=== PATIENT | female | born 1960 | race Caucasian/White ===

== ENCOUNTER 2020-07-27 07:45 | Outpatient (CLI) | payer BC, SELFPAY ==
--- NOTE | ~2020-07-27 | MM_ITS ---
EXAMINATION: MM screening [facility] BI w dani HISTORY: Screening mammogram TECHNIQUE: Craniocaudal and mediolateral oblique 3-D tomosynthesis images were obtained and synthetic 2-D images were generated. CAD analysis was submitted and interpreted. COMPARISON: 07/13/2019, 07/10/2018, 07/07/2017 BREAST PARENCHYMAL COMPOSITION: There are scattered areas of fibroglandular density. FINDINGS: There is no evidence of suspicious mass, calcification, or architectural distortion to sugg est malignancy in either breast. There has been no suspicious interval change. IMPRESSION: 1. No mammographic evidence of malignancy. 2. Recommend routine screening mammography in one year. BI-RADS Category 1: Negative Reviewed, dictated and finalized at location A.
== END 2020-07-27 07:46 | disposition home or self-care (01) ==
LOC: ANHIMG 07:49
PROVIDERS: Visit Provider Obstetrics & Gynecology
DX: Z12.31 Encounter for screening mammogram for malignant neoplasm of breast (principal)
CPT/HCPCS: 77063; 77067

== ENCOUNTER 2021-07-30 07:11 | Outpatient (CLI) | payer BC, SELFPAY ==
--- NOTE | ~2021-07-30 | MM_ITS ---
EXAMINATION: MM screening [facility] BI w dani HISTORY: Screening mammogram TECHNIQUE: Craniocaudal and mediolateral oblique 3-D tomosynthesis images were obtained and synthetic 2-D images were generated. CAD analysis was submitted and interpreted. COMPARISON: 07/27/2020, 07/13/2019, 07/10/2018 BREAST PARENCHYMAL COMPOSITION: There are scattered areas of fibroglandular density. FINDINGS: RIGHT BREAST: There is no evidence of suspicious mass, calcification, or architectural distortion to suggest malignancy. There has been no significant interval change. LEFT BREAST: There is a possible mass in the middle third of the slightly inner breast best appreciat ed 6.5 cm from the nipple. In addition, asymmetry posterior third breast in line with the nipple axis on the craniocaudal. IMPRESSION: 1. Left breast findings as above. 2. Additional mammographic views and possible breast ultrasound are recommended. BI-RADS Category 0: Incomplete: Needs additional imaging evaluation. Reviewed, dictated and finalized at location A. IMPRESSION: 1. Left breast findings as above. 2. Additional mammographic views and possible breast ultrasound are recommended . BI-RADS Category 0: Incomplete: Needs additional imaging evaluation.
== END 2021-07-30 07:12 | disposition home or self-care (01) ==
LOC: ANHIMG 07:14
PROVIDERS: Visit Provider Obstetrics & Gynecology
DX: Z12.31 Encounter for screening mammogram for malignant neoplasm of breast (principal); R92.8 Other abnormal and inconclusive findings on diagnostic imaging of breast
CPT/HCPCS: 77063; 77067

== ENCOUNTER 2021-08-17 13:23 | Outpatient (CLI) | payer BC, SELFPAY ==
--- NOTE | ~2021-08-17 | MMUS_ITS ---
EXAMINATION: MM diagnostic [facility] LT w dani, US breast LT complete HISTORY: Possible left breast mass reported on 07/2021 screening mammogram TECHNIQUE: Additional 3-D full-field ML and spot craniocaudal tomosynthesis images of the left breast were performed and synthetic 2-D images were generated. CAD analysis was submitted and interpreted. High resolution complete left breast ultrasound revealed 4 quadrants and subareolar area was performe d. COMPARISON: 07/30/2021, 07/27/2020, 07/13/2019, 07/10/2018 bilateral digital screening mammogram examinat ions FINDINGS: MAMMOGRAPHIC FINDINGS: No suspicious mass, architectural distortion, malignant calcification, skin thickening or retraction of the left breast is detected. ULTRASOUND: No suspicious solid mass or shadowing is detected. IMPRESSION: 1. No mammographic evidence of malignancy 2. Routine annual mammographic screening is recommended BI-RADS Category 1: Negative Reviewed, dictated and finalized at location A. IMPRESSION: 1. No mammographic evidence of malignancy 2. Routine annual mammographic screening is recommended BI-RADS Category 1: Negative
== END 2021-08-17 13:24 | disposition home or self-care (01) ==
LOC: ANHIMG 13:25
PROVIDERS: Visit Provider Obstetrics & Gynecology
DX: R92.8 Other abnormal and inconclusive findings on diagnostic imaging of breast (principal)
CPT/HCPCS: 76641; 77061; 77065; G0279

== ENCOUNTER 2021-10-01 02:09 | Day surgery (SDC) | payer BC, SELFPAY ==
[2021-09-13 09:14] VITALS: BMI 31.3
[2021-10-01 06:18] VITALS: BP 131/74; PULSE 62; RESP 16; TEMP 37.1; O2SAT 98; BMI 30.2
[2021-10-01] MEDS: LACTATED RINGERS 1,000 ML 150 ML IV CONT (06:30)
--- NOTE | 2021-10-01 07:12 | WPDANESEPPF ---
Anes - Initial Pre Proc Eval Procedure: Operation Date: 10/01/21 07:30 Proposed Procedures p Screening Colonoscopy - Peter Greene MD Date/Time: 10/01/21 07:12 Surgeon: Peter Greene MD Pre Op Diagnosis: family hx of colon ca, neoplasm screening Patient Data Age: 61 Gender: F Height: 1.6 m Weight: 77.5 kg Last Vital Signs Temp 98.7 F 10/01/21 06:18 Pulse 62 10/01/21 06:18 Resp 16 10/01/21 06:18 BP 131/74 10/01/21 06:18 Pulse Ox 98 10/01/21 06:18 Allergies Allergy/AdvReac Type Severity Reaction Status Date / Time No Known Allergies Allergy Unverified 10/01/21 06:17 Home Medications Medication Instructions Recorded Confirmed Type metoprolol succinate 25 mg 37.5 mg PO BID 06/29/21 10/01/21 History tablet,extended release 24 hr apixaban [Eliquis] 5 mg PO BID 09/13/21 10/01/21 History digoxin 0.125 mcg PO DAILY 09/13/21 10/01/21 History abgwsdab-oso-meco-FA-lutein 1 tablet PO DAILY 09/13/21 10/01/21 History [Centrum Silver Women] psyllium husk [Metamucil] 2.08 g PO DAILY 09/13/21 10/01/21 History solifenacin 10 mg PO DAILY 09/13/21 10/01/21 History Patient hx anesthesia problems: none Family hx anesthesia problems: none Results Review: All pre-operative results and documents have been reviewed as part of the pre-operative evaluation. [facility] Past Medical History Medical History (Updated 10/01/21 @ 07:08 by Shyam Kay MD) Atrial fibrillation SHARI (obstructive sleep apnea) Family History Family History Mother Diabetes mellitus Social History Social History Smoking status: Never smoker Alcohol intake: current Substance use: never Substance use type: does not use Living arrangements: with family Spiritual care concerns: No Anes - Eval Final PreProcedure Day of Procedure 10/01/21 07:12 Patient weight: obese Heart: regular rate and rhythm Lungs: clear to auscultation Airway: Mallampati scale class II Neurological: alert and oriented Last oral intake: >/= 8 hours ASA classification: III Emergent: no Anesthetic plan: proceed Anesthesia type and monitoring: general GIVS and standard monitoring Results Review: All pre-operative results and documents have been reviewed as part of the pre-operative evaluation. Informed Consent: The patient's anesthetic plan and its attendant risks and benefits were discussed with the patient/family/POA. Questions were solicited and answers provided to the satisfaction of the patient/family/POA.
--- NOTE | 2021-10-01 07:44 | WPDGICN ---
Assessment and Plan Assessment and plan (1) History of rectal ulcer: Code(s): Z87.19 - Personal history of other diseases of the digestive system Status: Acute Assessment and Plan: Patient has a history of rectal ulcer. Clinically resolved plan is for colonoscopy to reassess at this time. May represent localized inflammation and inflammatory bowel disease. (2) History of colon polyps: Code(s): Z86.010 - Personal history of colonic polyps Status: Acute Assessment and Plan: Patient has had multiple colon polyps various exams in the past. Plan is for surveillance colonoscopy is at 3 year intervals. (3) Family history of malignant neoplasm of colon in first degree relative diagnosed when younger than 60 years of age: Code(s): Z80.0 - Family history of malignant neoplasm of digestive organs Status: Acute Assessment and Plan: Patient's father had colon cancer. For this reason continued monitoring with interval colonoscopy is is advised. (4) History of intussusception: Code(s): Z87.19 - Personal history of other diseases of the digestive system Status: Acute Assessment and Plan: Surgically corrected. Small-bowel polyp apparently was identified found to be benign. Continue to monitor clinically. No additional workup this time. GI Consult Note Consult date/time: 10/01/21 07:44 HPI: Rebecca Richardson is a 61 year old female Presents for follow-up colonoscopy. Patient's history is significant that she had a rectal ulceration 2018 felt to be benign. Patient additionally has had colon polyps in the past. Family history is significant for colon cancer in her father. Last year had surgery for an intussusception in [facility] in [place]. Patient's presents today for follow-up colonoscopy. She reports her current weight appetite bowel movements are normal. Review of Systems Review of Systems: All systems reviewed & are unremarkable except as noted in HPI and below PMFSH Past Medical History Medical History (Updated 10/01/21 @ 07:08 by Shyam Kay MD) Atrial fibrillation SHARI (obstructive sleep apnea) Family History Family History Mother Diabetes mellitus Social History Social History Smoking status: Never smoker Alcohol intake: current Substance use: never Substance use type: does not use Living arrangements: with family Spiritual care concerns: No Meds Home Medications and Allergies Home Medications Medication Instructions Recorded Confirmed Type metoprolol succinate 25 mg 37.5 mg PO BID 06/29/21 10/01/21 History tablet,extended release 24 hr apixaban [Eliquis] 5 mg PO BID 09/13/21 10/01/21 History digoxin 0.125 mcg PO DAILY 09/13/21 10/01/21 History xawmgmap-bvr-scpt-FA-lutein 1 tablet PO DAILY 09/13/21 10/01/21 History [Centrum Silver Women] psyllium husk [Metamucil] 2.08 g PO DAILY 09/13/21 10/01/21 History solifenacin 10 mg PO DAILY 09/13/21 10/01/21 History Allergies Allergy/AdvReac Type Severity Reaction Status Date / Time No Known Allergies Allergy Unverified 10/01/21 06:17 Vital Signs Vital Signs - 24 hr 10/01/21 06:18 Temperature 98.7 F Pulse Rate 62 Respiratory Rate 16 Blood Pressure 131/74 Pulse Oximetry 98 Exam Narrative: Physical exam reveals patient be alert. Vital signs stable. HEENT exam is unremarkable. Patient is anicteric. Lungs are clear to auscultation and percussion. Heart is without murmur or extra sounds. Abdominal exam bowel sounds are present soft nontender with no hepatosplenomegaly. Digital external rectal exam is normal.
[2021-10-01 07:46] VITALS: BP 118/66; PULSE 68; RESP 20; O2SAT 97
[2021-10-01 07:56] VITALS: BP 112/67; PULSE 63; RESP 27; O2SAT 96
[2021-10-01 08:06] VITALS: BP 128/74; PULSE 60; RESP 20; O2SAT 100
== END 2021-10-01 08:25 | disposition home or self-care (01) ==
PROVIDERS: Visit Provider Internal Medicine Gastroenterology
PROC: 0DJD8ZZ Inspection of Lower Intestinal Tract, Via Natural or Artificial Opening Endoscopic (ICD-10-PCS; CPT 45378; principal; 2021-10-01 07:30)
DX: Z12.11 Encounter for screening for malignant neoplasm of colon (principal); K62.6 Ulcer of anus and rectum; K57.30 Diverticulosis of large intestine without perforation or abscess without bleeding; K62.1 Rectal polyp; Z80.0 Family history of malignant neoplasm of digestive organs; I48.91 Unspecified atrial fibrillation; G47.33 Obstructive sleep apnea (adult) (pediatric); Z79.01 Long term (current) use of anticoagulants; E66.9 Obesity, unspecified; Z68.30 Body mass index [BMI] 30.0-30.9, adult
CPT/HCPCS: 45380; 45385; 88305; J2704; J7120

== ENCOUNTER 2022-09-30 14:04 | Outpatient (CLI) | payer BC, SELFPAY ==
--- NOTE | ~2022-09-30 | DEXA_ITS ---
Bone Density Report Name: ALE ABDUL Age: 62 Sex: Female Ethnicity: White Date of : 1960 Indication: postmenopausal; screening for osteoporosis; height loss; inflammatory bowel disease; hysterectomy; Referring Provider: JANIE ELIZONDO Study: Bone densitometry was performed. Exam Date: September 30, 2022 Accession number: [id number] Bone Density: Region BMD T-score Z-score Classification AP Spine(L1-L4) 1.010 -0.3 1.3 Normal Femoral Neck (Left) 0.848 0.0 1.4 Normal Total Hip (Left) 0.979 0.3 1.4 Normal Femoral Neck (Right) 0.801 -0.4 1.0 Normal Total Hip (Right) 0.994 0.4 1.5 Normal Total Hip Mean 0.987 0.4 1.5 Normal World Health Organization criteria for BMD impression classify patients as: Normal (T-score at or above -1.0), Osteopenia (T-score between -1.0 and -2.5), or Osteoporosis (T-score at or below -2.5). 10-year Fracture Risk: FRAX not reported because: All T-scores for Spine Total, Hip Total, Femoral Neck at or above -1.0 Clinical Information Provided by Patient: Has used the following medications: Vitamin D, Calcium Has the following medical conditions: Inflammatory bowel diseases, Hysterectomy Patient maximum height was 63 Menopause Age: 25 No regular weight bearing exercise Drinks caffeinated beverages Onset of menses at age 14 Number of children 3 Impression: The patient has normal bone mass. Discussion: BONE DENSITY IS ABOVE THE MINIMUM DESIRABLE LEVEL AT ALL SKELETAL SITES TESTED. This patient?s bone mineral density is above the minimum desirable level (T-score -1.0 or better) at all sites measured. The patient should follow a healthful lifestyle (good nutrition with adequate calcium and vitamin D, and appropriate weight-bearing exercise). Follow-Up: Consider repeating this study in 5 years or sooner if there is some new clinical indication. Reported by: [facility] on 09/30/2022 2:37:00 PM. Reviewed, dictated and finalized at location A.
== END 2022-09-30 14:05 | disposition home or self-care (01) ==
PROVIDERS: Visit Provider Physician Assistant Medical
DX: Z13.820 Encounter for screening for osteoporosis (principal); Z78.0 Asymptomatic menopausal state; E28.39 Other primary ovarian failure; I48.91 Unspecified atrial fibrillation; Z00.00 Encounter for general adult medical examination without abnormal findings
CPT/HCPCS: 77080

== ENCOUNTER 2022-10-05 12:40 | Outpatient (CLI) | payer BC, SELFPAY ==
--- NOTE | ~2022-10-05 | MM_ITS ---
EXAMINATION: MM screening [facility] BI w dani HISTORY: Screening TECHNIQUE: Craniocaudal and mediolateral oblique 3-D tomosynthesis images were obtained and synthetic 2-D images were generated. CAD analysis was submitted and interpreted. COMPARISON: Comparison to multiple prior studies sequentially, with oldest reviewed study dated 07/07. BREAST PARENCHYMAL COMPOSITION: There are scattered areas of fibroglandular density. FINDINGS: There is no evidence of suspicious mass, calcification, or architectural distortion to sugg est malignancy in either breast. There has been no suspicious interval change. IMPRESSION: 1. No mammographic evidence of malignancy. 2. Recommend routine screening mammography in one year. BI-RADS Category 1: Negative Reviewed, dictated and finalized at location B. I [employer]
== END 2022-10-05 12:41 | disposition home or self-care (01) ==
LOC: ANHIMG 12:42
PROVIDERS: Visit Provider Physician Assistant Medical
DX: Z12.31 Encounter for screening mammogram for malignant neoplasm of breast (principal)
CPT/HCPCS: 77063; 77067

== ENCOUNTER 2023-08-18 02:44 | Day surgery (SDC) | payer BC, SELFPAY ==
[2023-08-13 15:08] VITALS: BMI 29.7
[2023-08-18 12:27] VITALS: BP 134/68; PULSE 54; RESP 16; TEMP 36.9; O2SAT 100
[2023-08-18] MEDS: LACTATED RINGERS 1,000 ML 150 ML IV CONT (12:36)
--- NOTE | 2023-08-18 12:57 | WPDANESEPPF ---
Anes - Initial Pre Proc Eval Procedure: Operation Date: 08/18/23 14:00 Proposed Procedures p Esophagogastroduodenoscopy - Peter Greene MD Date/Time: 08/18/23 12:57 Surgeon: Peter Greene MD Pre Op Diagnosis: Esophagitis unspecified without bleeding Patient Data Age: 62 Gender: F Height: 1.59 m Weight: 70.6 kg Last Vital Signs Temp 98.5 F 08/18/23 12:27 Pulse 54 L 08/18/23 12:27 Resp 16 08/18/23 12:27 BP 134/68 08/18/23 12:27 Pulse Ox 100 08/18/23 12:27 O2 Del Method Room Air 08/18/23 12:27 Allergies Allergy/AdvReac Type Severity Reaction Status Date / Time No Known Allergies Allergy Unverified 08/18/23 12:25 Home Medications Medication Instructions Recorded Confirmed Type metoprolol succinate 25 mg 37.5 mg PO BID 06/29/21 08/18/23 History tablet,extended release 24 hr apixaban 5 mg tablet (Eliquis) 5 mg PO BID 09/13/21 08/13/23 History digoxin 125 mcg (0.125 mg) tablet 0.125 mcg PO DAILY 09/13/21 08/18/23 History skuomtcy-smws-rwam 8 mg-folic 400 1 tablet PO DAILY 09/13/21 08/13/23 History mcg-K 50 mcg-lutein 300 mcg tablet (Centrum Silver Women) solifenacin 10 mg tablet 10 mg PO DAILY #90 tabs 04/04/23 08/13/23 Rx atorvastatin 20 mg tablet 20 mg PO QHS #90 tabs 07/08/23 08/13/23 Rx ascorbic acid (vitamin C) 1,000 mg 1 g PO DAILY 08/13/23 08/13/23 History tablet lutein-zeaxanthin 1 cap PO BID 08/13/23 08/13/23 History pantoprazole 40 mg tablet,delayed 40 mg PO DAILY 08/13/23 08/13/23 History release Patient hx anesthesia problems: none Family hx anesthesia problems: none Results Review: All pre-operative results and documents have been reviewed as part of the pre-operative evaluation. [facility] Past Medical History Medical History Atrial fibrillation Family history of malignant neoplasm of colon in first degree relative diagnosed when younger than 60 years of age History of colon polyps History of intussusception History of rectal ulcer Left carpal tunnel syndrome SHARI (obstructive sleep apnea) Right carpal tunnel syndrome Surgical History Surgical History History of cataract extraction History of rotator cuff surgery Family History Family History Mother Diabetes mellitus Social History Social History Smoking status: Never smoker Alcohol intake: current Substance use: never Substance use type: does not use Lack of Transportation: No Lack of Food: Never True Current Housing: I Have Housing Concerned About Future Housing: No Difficulty Paying Gas/Electric Bills: No Difficulty Paying for Meds: No Currently Unemployed: No Education: High School Diploma/GED Difficulty w/ Childcare or Family Care: No Living arrangements: with family Occupation/Education: occupation Gender identity (if verbalized by the patient): Female Spiritual care concerns: No Anes - Eval Final PreProcedure Day of Procedure 08/18/23 12:57 Patient weight: normal Heart: regular rate and rhythm Lungs: clear to auscultation Airway: Mallampati scale class II Neurological: alert and oriented Last oral intake: >/= 8 hours ASA classification: II Emergent: no Anesthetic plan: proceed Anesthesia type and monitoring: general GIVS and standard monitoring Results Review: All pre-operative results and documents have been reviewed as part of the pre-operative evaluation. Informed Consent: The patient's anesthetic plan and its attendant risks and benefits were discussed with the patient/family/POA. Questions were solicited and answers provided to the satisfaction of the patient/family/POA.
--- NOTE | 2023-08-18 13:18 | PM.HPGS ---
History of Present Illness History of Present Illness Consent: Risks, benefits, and alternatives have been discussed and questions answered. Patient agrees to proceed with procedure. Chief complaint: dysphagia, abnormal ct scan Narrative: Rebecca Richardson is a 62 year old female Presents for EGD. Patient apparently had difficulty swallowing about 3 weeks ago went to the emergency room in [place]. Had an imaging study presumed to be a CT scan that showed esophagitis. Placement was placed on pantoprazole. She states subsequent to this symptoms have improved she had no difficulty prior to this. She states when she had difficulty swallowing food she felt as though she may choke. Patient denies any ongoing heartburn. Currently maintained on pantoprazole 40mg p.o. daily. Old x-rays are not available for review. Patient denies any weight loss or bleeding. She has been referred for EGD. Review of Systems Review of Systems: Review of systems noncontributory. [facility] Past Medical History Medical History Atrial fibrillation Family history of malignant neoplasm of colon in first degree relative diagnosed when younger than 60 years of age History of colon polyps History of intussusception History of rectal ulcer Left carpal tunnel syndrome SHARI (obstructive sleep apnea) Right carpal tunnel syndrome Surgical History Surgical History History of cataract extraction History of rotator cuff surgery Family History Family History Mother Diabetes mellitus Social History Social History Smoking status: Never smoker Alcohol intake: current Substance use: never Substance use type: does not use Lack of Transportation: No Lack of Food: Never True Current Housing: I Have Housing Concerned About Future Housing: No Difficulty Paying Gas/Electric Bills: No Difficulty Paying for Meds: No Currently Unemployed: No Education: High School Diploma/GED Difficulty w/ Childcare or Family Care: No Living arrangements: with family Occupation/Education: occupation Gender identity (if verbalized by the patient): Female Spiritual care concerns: No Meds Home Medications and Allergies Home Medications Medication Instructions Recorded Confirmed Type metoprolol succinate 25 mg 37.5 mg PO BID 06/29/21 08/18/23 History tablet,extended release 24 hr apixaban 5 mg tablet (Eliquis) 5 mg PO BID 09/13/21 08/13/23 History digoxin 125 mcg (0.125 mg) tablet 0.125 mcg PO DAILY 09/13/21 08/18/23 History uqhreibn-rbxi-hxki 8 mg-folic 400 1 tablet PO DAILY 09/13/21 08/13/23 History mcg-K 50 mcg-lutein 300 mcg tablet (Centrum Silver Women) solifenacin 10 mg tablet 10 mg PO DAILY #90 tabs 04/04/23 08/13/23 Rx atorvastatin 20 mg tablet 20 mg PO QHS #90 tabs 07/08/23 08/13/23 Rx ascorbic acid (vitamin C) 1,000 mg 1 g PO DAILY 08/13/23 08/13/23 History tablet lutein-zeaxanthin 1 cap PO BID 08/13/23 08/13/23 History pantoprazole 40 mg tablet,delayed 40 mg PO DAILY 08/13/23 08/13/23 History release Allergies Allergy/AdvReac Type Severity Reaction Status Date / Time No Known Allergies Allergy Unverified 08/18/23 12:25 Vital Signs Vital Signs - 24 hr 08/18/23 12:27 Temperature 98.5 F Pulse Rate 54 L Respiratory Rate 16 Blood Pressure 134/68 Pulse Oximetry 100 Oxygen Delivery Room Air Exam Narrative: Physical exam reveals patient to be alert. Vital signs stable. HEENT exam is unremarkable. Patient is anicteric. Lungs are clear to auscultation and percussion. Heart is without murmur or extra sounds. Abdomen bowel sounds are present soft nontender with no organomegaly. Assessment and Plan Assessment and plan (1) Dysphagia: Code(s): R13.10 - Dysphagia, un
[2023-08-18 13:39] VITALS: BP 95/57; PULSE 64; RESP 24; O2SAT 94
[2023-08-18 13:49] VITALS: BP 106/65; PULSE 60; RESP 20; O2SAT 94
[2023-08-18 13:59] VITALS: BP 102/74; PULSE 51; RESP 18; O2SAT 94
== END 2023-08-18 14:15 | disposition home or self-care (01) ==
PROVIDERS: PCP Physician Assistant Medical; Visit Provider Internal Medicine Gastroenterology
PROC: 0DJ08ZZ Inspection of Upper Intestinal Tract, Via Natural or Artificial Opening Endoscopic (ICD-10-PCS; CPT 43235; principal; 2023-08-18 14:00)
DX: Q39.4 Esophageal web (principal); I48.91 Unspecified atrial fibrillation; G47.33 Obstructive sleep apnea (adult) (pediatric); Z79.01 Long term (current) use of anticoagulants
CPT/HCPCS: 43450; 43235; J2704; J7120

== ENCOUNTER 2023-10-24 06:36 | Outpatient (CLI) | payer BC, SELFPAY ==
[2023-10-24 07:26] LABS: Basophils Absolute Auto 0.1 K/mm3 (0.0-0.1); Basophils Percent Auto 1.6 % (0.2-1.2); Eosinophils Absolute Auto 0.1 K/mm3 (0-0.3); Eosinophils Percent Auto 1.9 % (0-4.4); Hematocrit 38.6 % (37.0-47.0); Hemoglobin 12.9 g/dL (12.0-15.0); Immature Granulocyte Absolute 0.01 K/mm3 (0.00-0.031); Immature Granulocyte Percent A 0.2 % (0-0.5); Mean Corpuscular HGB Conc 33.4 g/dl (32-36); Mean Corpuscular Hemoglobin 29.6 pg (26-34); Mean Corpuscular Volume 88.5 fl (80-100); Mean Platelet Volume 9.6 fl (7.4-10.4); Monocytes Absolute Auto 0.6 K/mm3 (0.1-0.6); Monocytes Percent Auto 9.7 % (2.6-8.5); Neutrophils Absolute Auto 3.6 K/mm3 (1.3-6.7); Neutrophils Percent Auto 63.6 % (45.5-73.1); Platelet Count Result 234 k/mm3 (150-375); Red Blood Count 4.36 M/mm3 (4.2-5.4); Red Cell Distribution Width 12.8 % (11.5-14.5); White Blood Count 5.7 K/mm3 (4.5-10.0)
[2023-10-24 07:38] LABS: Alanine Aminotransferase 21 U/L (6-35); Albumin Level 4.1 g/dL (3.5-5.1); Alkaline Phosphatase 88 U/L (38-126); Anion Gap 9 mmol/L (8-16); Aspartate Amino Transferase 27 U/L (14-36); Bilirubin,Total 0.7 mg/dL (0.2-1.3); Blood Urea Nitrogen 14 mg/dL (7-17); Calcium 9.3 mg/dL (8.4-10.2); Carbon Dioxide 24 mmol/L (22-30); Chloride 106 mmol/L (98-107); Cholesterol 156 mg/dL (0-200); Estimated Glomerular Filt Rate > 60; Glucose 96 mg/dL (65-110); HDL Direct 42 mg/dL; Potassium 4.3 mmol/L (3.4-5.0); Sodium 139 mmol/L (137-145); Triglycerides 124 mg/dL (<150)
[2023-10-24 07:49] LABS: LDL Cholesterol Direct 69 mg/dL
[2023-10-24 08:09] LABS: Digoxin 0.5 ng/mL (0.8-2.0)
== END 2023-10-24 06:37 | disposition home or self-care (01) ==
PROVIDERS: PCP Physician Assistant Medical; Referring Provider Physician Assistant Medical
DX: Z00.00 Encounter for general adult medical examination without abnormal findings (principal); G47.33 Obstructive sleep apnea (adult) (pediatric); I48.0 Paroxysmal atrial fibrillation
CPT/HCPCS: 36415; 80053; 80061; 80162; 84443; 85025

== ENCOUNTER 2023-12-15 06:11 | Emergency (ER) | payer BC, SELFPAY ==
[2023-12-15] VITALS (9 sets, daily range): BP systolic 117–133; BP diastolic 64–87; PULSE 57–83; RESP 13–24; TEMP 36.6; O2SAT 93–100
--- NOTE | 2023-12-15 06:22 | ECG_ITS ---
Measurements Intervals [place] Rate: 66 P: -59 CO: 149 QRS: 265 QRSD: 88 T: 7 QT: 399 QTc: 419 Interpretive Statements SINUS rHYTHM LOW QRS VOLTAGE IN PRECORDIAL LEADS [QRS DEFLECTION < 1.0 mV IN CHEST LEADS] POSSIBLE RIGHT VENTRICULAR CONDUCTION DELAY [RSR (QR) IN V1/V2] ANTEROLATERAL MYOCARDIAL INFARCTION , OF INDETERMINATE AGE [40+ ms Q WAVE IN I/aVL/V3- V6] ABNORMAL ECG NO PREVIOUS ECG AVAILABLE FOR COMPARISON Electronically Signed On 12-15-2023 18:23:57 [employer]SEMBLY LINE INSPECTOR by Bob Radford M.D.
[2023-12-15 06:51] LABS: Basophils Absolute Auto 0.1 K/mm3 (0.0-0.1); Basophils Percent Auto 1.4 % (0.2-1.2); Eosinophils Absolute Auto 0.1 K/mm3 (0-0.3); Eosinophils Percent Auto 1.2 % (0-4.4); Hematocrit 39.3 % (37.0-47.0); Hemoglobin 13.5 g/dL (12.0-15.0); Immature Granulocyte Absolute 0.02 K/mm3 (0.00-0.031); Immature Granulocyte Percent A 0.3 % (0-0.5); Lymphocytes Absolute Auto 1.13 K/mm3 (0.9-3.2); Lymphocytes Percent Auto 17.3 % (18.3-44.2); Mean Corpuscular HGB Conc 34.4 g/dl (32-36); Mean Corpuscular Hemoglobin 29.9 pg (26-34); Mean Corpuscular Volume 86.9 fl (80-100); Mean Platelet Volume 9.7 fl (7.4-10.4); Monocytes Absolute Auto 0.5 K/mm3 (0.1-0.6); Monocytes Percent Auto 7.9 % (2.6-8.5); Neutrophils Absolute Auto 4.7 K/mm3 (1.3-6.7); Neutrophils Percent Auto 71.9 % (45.5-73.1); Platelet Count Result 229 k/mm3 (150-375); Red Blood Count 4.52 M/mm3 (4.2-5.4); White Blood Count 6.6 K/mm3 (4.5-10.0)
[2023-12-15] MEDS: ONDANSETRON INJ 4 MG/2 ML VIAL IV PUSH (06:55)
[2023-12-15 06:59] LABS: Alanine Aminotransferase 23 U/L (6-35); Albumin Level 4.5 g/dL (3.5-5.1); Alkaline Phosphatase 88 U/L (38-126); Anion Gap 9 mmol/L (8-16); Aspartate Amino Transferase 29 U/L (14-36); Bilirubin,Total 0.9 mg/dL (0.2-1.3); Blood Urea Nitrogen 16 mg/dL (7-17); Calcium 9.7 mg/dL (8.4-10.2); Carbon Dioxide 20 mmol/L (22-30); Chloride 107 mmol/L (98-107); Estimated CRCL calculation 66 ml/min; Estimated Glomerular Filt Rate > 60; Glucose 113 mg/dL (65-110); Potassium 3.9 mmol/L (3.4-5.0); Sodium 136 mmol/L (137-145)
[2023-12-15] MEDS: SODIUM CHLORIDE 0.9% IV 1,000 ML 999 ML IV CONT (07:52)
[2023-12-15] MEDS: diazePAM INJ (*CRX) 10 MG/2 ML SYRINGE 5 MG IV PUSH (07:53)
--- NOTE | 2023-12-15 09:17 | ED.GENADULT ---
HPI - General Adult General Chief complaint: Dizziness Stated complaint: dizziness, N/V Time Seen by Provider: 12/15/23 07:02 History of Present Illness HPI narrative: Patient is a 63-year-old female who presents ER with spinning dizziness. sudden onset upon waking. No sinus congestion or sore throat or cough. No arm numbness or weakness. She reports symptoms are worse with lying down flat. She gets nausea vomiting with this. Denies history of vertigo. No ringing in the ears. Related Data Home Medications Medication Instructions Recorded Confirmed metoprolol succinate 25 mg 37.5 mg PO BID 06/29/21 08/18/23 tablet,extended release 24 hr apixaban 5 mg tablet (Eliquis) 5 mg PO BID 09/13/21 08/13/23 digoxin 125 mcg (0.125 mg) tablet 0.125 mcg PO DAILY 09/13/21 08/18/23 gtcjvvju-jcvw-urel 8 mg-folic 400 1 tablet PO DAILY 09/13/21 08/13/23 mcg-K 50 mcg-lutein 300 mcg tablet (Centrum [facility]) ascorbic acid (vitamin C) 1,000 mg 1 g PO DAILY 08/13/23 08/13/23 tablet lutein-zeaxanthin 1 cap PO BID 08/13/23 08/13/23 Allergies Allergy/AdvReac Type Severity Reaction Status Date / Time No Known Allergies Allergy Unverified 11/27/23 14:05 Review of Systems Review of Systems: All systems reviewed & are unremarkable except as noted in HPI and below Constitutional: Constitutional: Reports no additional constitutional complaints ENT: Reports vertigo, Reports dizziness, Denies nasal congestion and Denies sore throat Cardiovascular: Cardiovascular: Reports no additional cardiovascular complaints Respiratory: Respiratory: Reports no additional respiratory complaints Gastrointestinal: Gastrointestinal: Denies abdominal pain, Denies diarrhea, Reports nausea and Reports vomiting Musculoskeletal: Musculoskeletal: Reports no additional musculoskeletal complaints [facility] Past Medical History Medical History (Updated 12/15/23 @ 09:21 by Vinicio Zamorano MD) Atrial fibrillation Family history of malignant neoplasm of colon in first degree relative diagnosed when younger than 60 years of age History of colon polyps History of intussusception History of rectal ulcer Left carpal tunnel syndrome Left hip pain Lumbar pain SHARI (obstructive sleep apnea) Right carpal tunnel syndrome Surgical History Surgical History History of cataract extraction History of rotator cuff surgery Family History Family History Mother Diabetes mellitus Social History Social History Smoking status: Never smoker Alcohol intake: current Substance use: never Substance use type: does not use Lack of Transportation: No Lack of Food: Never True Current Housing: I Have Housing Concerned About Future Housing: No Difficulty Paying Gas/Electric Bills: No Difficulty Paying for Meds: No Currently Unemployed: No Education: High School Diploma/GED Difficulty w/ Childcare or Family Care: No Living arrangements: with family Occupation/Education: occupation Gender identity (if verbalized by the patient): Female Spiritual care concerns: No Exam Narrative: GENERAL: Well-appearing, well-nourished, and in no acute distress. HEAD: Normocephalic, atraumatic. EYES: PERRL and nystagmus with lateral gaze to left and right. ENT: Mucous membranes moist. TMs normal bilaterally. NECK: Supple. CHEST: Clear to auscultation. No respiratory distress. HEART: Regular rate and rhythm. Normal peripheral pulses. EXTREMITIES: Normal range of motion. No edema. SKIN: Warm, dry, no rash. NEURO: Alert and oriented x3. PSYCH: Normal mood and affect. Course Course Emergency Course: Symptoms resolved with IV fluid, Valium 5 mg, and meclizine 25 mg. Patient has been up and ambulatory without issue. She reports she does feel little heavy from the medicat
== END 2023-12-15 09:53 | disposition home or self-care (01) ==
PROVIDERS: Emergency Medicine; Emergency Provider Emergency Medicine; PCP Family Medicine
DX: R42 Dizziness and giddiness (principal); I48.91 Unspecified atrial fibrillation; G47.33 Obstructive sleep apnea (adult) (pediatric); Z98.49 Cataract extraction status, unspecified eye; Z86.010 Personal history of colon polyps; Z79.01 Long term (current) use of anticoagulants
CPT/HCPCS: 36415; 80053; 85025; 93005; 96361; 96374; 96375; 99284; J2405; J3360; J7030

== ENCOUNTER 2024-01-23 12:50 | Outpatient (CLI) | payer BC, SELFPAY ==
--- NOTE | ~2024-01-23 | MR_ITS ---
EXAMINATION: MR brain IAC wo/w con DATE: 01/23/2024 13:39 INDICATION: Dizziness and giddiness. TECHNIQUE: Magnetic resonance imaging (MRI) of the brain, brainstem, and internal auditory canals was performed without and with 15 mL MultiHance intravenous contrast. COMPARISON: None. FINDINGS: There are scattered areas of nonspecific increased T2-weighted signal intensity in the cere bral white matter, which is within normal limits for the patient's age. There is no intracranial hemo rrhage, acute infarction, or abnormal intracranial mass lesion. The ventricles are normal in size. Th e paranasal sinuses are clear. There are likely changes of ocular lens replacement surgeries. The int ernal auditory canals, inner ears, and tympanic cavities are normal. The mastoid air cells are normal . IMPRESSION: 1. Normal aging brain. Reviewed, dictated and finalized at location A. IMPRESSION: 1. Normal aging brain.
== END 2024-01-23 12:51 ==
PROVIDERS: PCP Family Medicine; Visit Provider Physician Assistant Medical
DX: R42 Dizziness and giddiness (principal); R51.9 Headache, unspecified
CPT/HCPCS: 70553; A9577

== ENCOUNTER 2024-02-03 14:45 | Outpatient (RCR) | payer BC, SELFPAY ==
--- NOTE | 2023-12-31 16:53 | PTOPEVAL1 ---
Assessment and note entered by Loren Jessica, PT Assessment Status Evaluation Diagnosis pain in left hip, low back pain Addn. conditions weakness, abnormal postures Subjective Information Pt reports no pain in back just in hip and sometimes can feel the bulge . Had a cortisone shot in March of last year Was at work and could only get up from sitting while sitting very far forward and pushing up from hair, and straighten from there. Usually is only in the morning but at this point went to doctor and got a steroid shot on 11/27/23. Does two stretches in the morning every morning and this helps. side sleeper on left side, will feel stuck but stretches help her get unstuck Started about 2-3 years ago, no traumatic event. Usually about every 6 months but sometimes closer together. 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 She also has a history of arthritis and x-ray imaging showing lumbar curvatures and anterolisthesis. Pt demo's severely decreased transverse abdominal strength and decreased hip/core strength as well. She also demo 's what appears to be a pelvic upslip on left side . Pt will benefit from physical therapy to address alignment, strength deficits, and pain in order to return to a PLOF from 2 years ago. Plan of Care Interventions Check Out for Orthotic/Pr,Electrical Stimulation, Manual Therapy,Mechanical Traction,Neuro Re- education,Patient/Caregiver Educati,Therapeutic Activities,Therapeutic Exercise,Self-Care/Home Management PT Services Indicated Yes Treatment Frequency and 1-2x weekly x 12 visits Duration These treatments will address the objective and functional deficits as defined above. The patient will be advanced safely and appropriately in order for the patient to progress towards his/her prior level of function. Additional exercises will be introduced and as well as a comprehensive home
--- NOTE | 2023-12-31 16:53 | OPREHPOC ---
Outpatient Therapy Plan of Care This is a Multidisciplinary Plan of Care that may contain components documented by all disciplines (PT, OT, and ST.) PT Problem 1 PT Problem #1 Knowledge Deficit PT Goal 1 Goal Pt will be independent in HEP Pt will verbalize understanding of diagnosis and prognosis Target Visit 6 PT Problem 2 PT Problem #2 Pain PT Goal 1 Goal Pt will report greatest pain level at 3/10 or less to improve ADLs and activities Target Visit 6 PT Goal 2 Goal Pt will report resolution of pain to return to PLOF Target Visit 12 PT Problem 3 PT Problem #3 Impaired Strength PT Goal 1 Goal Pt will demo strength of 4/5 in all tested planes BLEs Target Visit 12 PT Goal 2 Goal Pt will demo core strength of 3+/5 of the TRAM to improve lumbopelvic stability Target Visit 12
--- NOTE | 2024-01-21 16:53 | OPREHPOC ---
Outpatient Therapy Plan of Care This is a Multidisciplinary Plan of Care that may contain components documented by all disciplines (PT, OT, and ST.) PT Problem 1 PT Problem #1 Knowledge Deficit PT Goal 1 Goal Pt will be independent in HEP Pt will verbalize understanding of diagnosis and prognosis Target Visit 6 PT Problem 2 PT Problem #2 Pain PT Goal 1 Goal Pt will report greatest pain level at 3/10 or less to improve ADLs and activities Target Visit 6 PT Goal 2 Goal Pt will report resolution of pain to return to PLOF Target Visit 12 PT Problem 3 PT Problem #3 Impaired Strength PT Goal 1 Goal Pt will demo strength of 4/5 in all tested planes BLEs Target Visit 12 PT Goal 2 Goal Pt will demo core strength of 3+/5 of the TRAM to improve lumbopelvic stability Target Visit 12 PT Problem 4 PT Problem #4 Impaired Balance PT Goal 1 Goal Pt will demo ability to stand with feet together on firm surface with eyes closed for 10 seconds Target Visit 6 Comment from reevaluation date PT Goal 2 Goal Pt will demo ability to stand with feet together on firm surface with eyes closed for 30 seconds Target Visit 12 Comment from reevaluation date
--- NOTE | 2024-01-21 16:53 | PTOPEVAL1 ---
Assessment and note entered by Loren Jessica, PT Evaluation Information Assessment Status Re-evaluation Diagnosis pain in left hip, low back pain, BPPV Left ear, dizziness and giddiness Therapy Condition weakness abnormal postures oth. abnormalities of mobility and gait Subjective Information Had a twinge this morning, but also has not been able to keep up with stretches secondary to vertigo. Has not had a serious episode since starting therapy. Feels that back has been ok before then it would hit her. Pt reports has improved with getting out of bed in the morning. Currently is having severe vertigo spell. Last spell was December 15, went to the emergency room with it. Prior to that has not had vertigo episodes. was sitting upright and spinning , was vomiting and couldn't stop. Pt reports prior to vertigo spell, has to have a pillow to sleep, cannot sleep flat on her back or would get loopy . Dropped metoprolo dosage, and also has MRI scheduled this week. Reported Pain Level Pain Score 0: Self Report Assessment PT Clinical Summary Pt presents today to add vestibular diagnosis to her active therapy plan for low back pain. She has improved in her low back pain but is most limited at the moment due to vertigo and related n/v symptoms. Vestibular evaluation suggestive of left sided BPPV though does not show nystagmus with [place]-Hallpike maneuver. Pt was treated with Charly Tripp today and educated on 24 hour precautions. Shift in plan of care to focus more heavily on vertigo symptoms with returning to back pain focus as vertigo progresses. Pt will benefit from continued therapy to address new onset vertigo and continue prior POC related to back pain. Plan of Care Interventions Check Out for Orthotic/Pr,Electrical Stimulation, Manual Therapy,Mechanical Traction,Neuro Re- education,Patient/Caregiver Educati,Therapeutic Activities,Therapeutic Exercise,Self-Care/Home Management Other Interventions LAST IRONER PT Services Indicated Yes Treatment Frequency and 1-2x weekly x 12 visits Duration These treatments will address t
--- NOTE | 2024-02-03 15:31 | PTOPDC ---
Assessment and note entered by Loren Jessica, PT Assessment Status Discharge Diagnosis pain in left hip, low back pain, BPPV, dizziness and giddiness Subjective Information Vertigo: 100% normal, hasn't had any trouble. Is back to normal Hip and back: no trouble. But also is concerned that it will return. Can go a long time without pain then it returns. Reports she didn't lift much before more secondary to her right shoulder Reported Pain Level Pain Score 0: Self Report Assessment PT Clinical Summary Pt has attended therapy 10 sessions initially for her lower back and hip pain, during POC had a spell of vertigo which was added to her existing plan of care. Over a total of 10 visits, pt's pain has fully resolved, her vertigo is fully resolved , and she has met all goals with exception of strength in core and hips. Pt has shown an increase in her core and hip strength however not up to the goal of 3+/5 and 4/5. She is independent in her home exercises and has been educated on which to continue, what to do if her pain returns, and when to return to therapy if needed. She is happy with her progress and reports feeling 100% improved overall. Thus she is being discharged from therapy for completion of her plan. PT Services Indicated Not at this time
== END 2024-02-05 13:54 | disposition home or self-care (01) ==
LOC: ANHHIPT 14:45
PROVIDERS: PCP Family Medicine; Visit Provider Physician Assistant Medical
DX: M54.50 Low back pain, unspecified (principal); M25.552 Pain in left hip
CPT/HCPCS: 95992; 97014; 97110; 97112; 97162; 97750; G0283

== ENCOUNTER 2024-02-20 07:31 | Outpatient (CLI) | payer BC, SELFPAY ==
--- NOTE | ~2024-02-20 | MM_ITS ---
EXAMINATION: MM screening renetta BI w dani HISTORY: Screening mammogram TECHNIQUE: Craniocaudal and mediolateral oblique 3-D tomosynthesis images were obtained and synthetic 2-D images were generated. CAD analysis was submitted and interpreted. COMPARISON: 10/05/2022 bilateral screening mammogram 08/17/2021 diagnostic left mammogram and complete left breast ultrasound examination, reported negati ve 07/30/2021, 07/13/2019, 07/07/2017 bilateral screening mammogram examinations BREAST PARENCHYMAL COMPOSITION: There are scattered areas of fibroglandular density. FINDINGS: Stable mild fibroglandular asymmetry. There is no evidence of suspicious mass, calcificatio n, or architectural distortion to suggest malignancy in either breast. There has been no suspicious i nterval change. IMPRESSION: 1. No mammographic evidence of malignancy. 2. Recommend routine screening mammography in one year. BI-RADS Category 1: Negative Reviewed, dictated and finalized at location A.
== END 2024-02-20 07:32 | disposition home or self-care (01) ==
LOC: ANHIMG 07:34
PROVIDERS: PCP Family Medicine; Visit Provider Physician Assistant Medical
DX: Z12.31 Encounter for screening mammogram for malignant neoplasm of breast (principal)
CPT/HCPCS: 77063; 77067

== ENCOUNTER 2024-12-02 00:44 | Day surgery (SDC) | payer MEDICARE, SELFPAY ==
[2024-11-23 14:52] VITALS: BMI 28.8
--- NOTE | 2024-11-23 15:10 | PC.NURSE ---
Spoke with _PATIENT regarding medication ELIQUIS. PATIENT_verbalizes understanding that the last dose is to be taken on _11/28/24 and the Endoscopist will instruct them when to restart after the procedure.
--- OUTSIDE RECORDS SUMMARY | 2024-12-02 00:47 | XMS_ITS | Clinical Summary ---
Author Organization [facility] Address [address] [place] [address] Care Team Providers Care Wool Puller Name Role Phone Indira Sears PA-C Primary Care Provider [phone] Allergies No known active allergies Medications Ascorbic Acid 1000 MG Tab Take 1 tablet by mouth daily with supper. Active Multiple Vitamins-Minera ls (MULTIVITAMIN ADULT OR) Take by mouth daily. Active solifenacin succinate 10 MG Tab Take 1 tablet (10 mg total) by mouth daily. 2 Active atorvastatin (LIPITOR) 20 MG tablet Take 1 tablet (20 mg total) by mouth every evening. 2 Active Multiple Vitamins-Minera ls (LUTEIN-ZEAXANT HIN OR) Take by mouth 2 (two) times a day. Active digoxin (LANOXIN) 0.125 MG tablet TAKE 1 TABLET BY MOUTH DAILY 90 tablet 4 Active ELIQUIS 5 MG tablet TAKE 1 TABLET BY MOUTH TWICE DAILY 180 tablet 4 Active metoprolol tartrate (LOPRESSOR) 25 MG tablet TAKE 1 TABLET BY MOUTH TWICE DAILY 180 tablet 5 Active metoprolol tartrate (LOPRESSOR) 25 MG tablet Take 1 tablet (25 mg total) by mouth 2 (two) times daily. 180 tablet 1 4 11/23/19 25 Discontinued Active Problems Problem Noted Date Diagnosed Date Bradycardia 09/10/2024 Assessment & Plan (09/10/2024 12:29 PM MEDICAL EDUCATION COORDINATOR): Pulse consistently low the past few visits. Discussed options to stop digoxin or metoprolol but patient wishes to continue at this time. She is not experiencing dizziness, lightheadedness or near syncope. Advised patient to contact us if these symptoms begin. Elevated BP without diagnosis of hypertension Assessment & Plan (02/27/2024 2:41 PM CDT): Blood pressure controlled in office today. She is currently only on metoprolol, which is not the best blood pressure medication. Assessment & Plan (11/16/2023 7:51 AM MEDICAL EDUCATION COORDINATOR): Blood pressure elevated in the office. Encouraged home blood pressure monitoring. Continue to monitor blood pressure. She is currently only on metoprolol, which is not the best blood pressure medication. Mixed hyperlipidemia 02/26/2023 Assessment & Plan (09/10/2024 12:27 PM MEDICAL EDUCATION COORDINATOR): Lipid panel completed 2 days ago with primary care and LDL is 75. Continue atorvastatin 20mg daily. Assessment & Plan (02/27/2024 2:41 PM CDT): Continue atorvastatin. Assessment & Plan (11/16/2023 7:50 AM MEDICAL EDUCATION COORDINATOR): Continue atorvastatin. PAF (paroxysmal atrial fibrillation) ([facility] S/HCC) 09/14/2021 Assessment & Plan (09/10/2024 12:26 PM MEDICAL EDUCATION COORDINATOR): She is in normal sinus rhythm on auscultation in office today. She denies any recent episodes of palpitations. Discussed option to stop digoxin, but patient wishes to continue both metoprolol and digoxin for now. She is on anticoagulation with eliquis and denies any bleeding or bruising concerns at this time. Assessment & Plan (02/27/2024 2:41 PM CDT): On physical exam, she is currently in normal sinus rhythm. We briefly discussed stopping either metoprolol or digoxin. For now we will keep metoprolol and digoxin the same. I am not very concerned about her bradycardia. Continue Eliquis. Assessment & Plan (11/16/2023 7:50 AM MEDICAL EDUCATION COORDINATOR): On physical exam, she is currently in normal sinus rhythm. She has concerns about checking for atrial fibrillation at home. I discussed options with her including the cardiac stroke or apple watch. She has a smart phone and I explained to her that she could use the cardio pro with the tila to determine if she is in atrial fibrillation. She would like to check a digoxin level, which we have ordered today. I recommended that she continue digoxin and stay on metoprolol. I explained to her that we started digoxin in the hospital because she had difficulty with blood pressure. She needs to continue anticoagulation with apixaban for stroke prevention. Assessment & Plan (08/23/2022 8:38 AM CDT): Continued on dig and metoprolol for rate control eliquis for AC Assessment & Plan (01/25/2022 8:12 AM CDT): Continued on eliquis for anticoagulation Metoprolol and dig for rate control Assessment & Plan (09/14/2021 3:29 PM MEDICAL EDUCATION COORDINATOR): On physical exam, she is currently in normal sinus rhythm. She has concerns about checking for atrial fibrillation at home. I discussed options with her including the cardiac stroke or apple watch. She has a smart phone and I explained to her that she could use the cardio pro with the tila to determine if she is in atrial fibrillation. She would like to check a digoxin level, which we have ordered today. I recommended that she continue digoxin and stay on metoprolol. I explained to her that we started digoxin in the hospital because she had difficulty with blood pressure. She needs to continue anticoagulation with apixaban for stroke prevention. Preoperative cardiovascular examination 09/14/20 Assessment & Plan (09/14/2021 3:30 PM MEDICAL EDUCATION COORDINATOR): She is at low risk for the proposed noncardiac procedure. She does not require further cardiac testing. I recommended that she stop apixaban 48 hours prior to her colonoscopy. I recommended that she continue metoprolol and digoxin during the perioperative period. Class 1 obesity due to exces s calories without serious comorbidity with body mass index (BMI) of 34.0 to 34.9 in adult 09/14/2021 Assessment & Plan (09/14/2021 3:31 PM MEDICAL EDUCATION COORDINATOR): She is obese with a Body mass index is 34.96 kg/m . She was educated on lifestyle modifications including diet and exercise. Abdominal pain 11/01/2019 Resolved Problems Problem Noted Date Diagnosed Date Resolved Date Atrial fibrillation with RVR ([facility]) 08/23/2021 09/14/2021 Atrial flutter with rapid ve ntricular response ([facility]) 02/03/2021 09/14/2021 Atrial fibrillation with rap id ventricular response ([facility]) 02/02/2021 09/14/2021 Encounters Date Type Department Care Team Description 11/19/2024 Telephone [facility], [address] [address] Kike Russell MD Surgical Clearance 09/14/2024 Abstract [facility], [address] [address] Tresa White CMA 09/10/2024 11:45 AM MEDICAL EDUCATION COORDINATOR [facility] [id number] [place] [phone] Kike Russell MD Lanter, Megan N, PA Atrial Fibrillation; Lipids 09/10/2024 Travel from Last 3 Months Immunizations Name Administration Dates Next Due PFIZER COVID-19 (ORIGINAL FO RMULATION, PURPLE CAP) mRNA, LNP-S, PF, 30 MCG/0.3 ML DOSE 02/13/2021,01/29/2021,01/08/2021 Family History Medical History Relation Comments Cancer Father Diabetes Mother Arthritis Sister Relation Status Comments Father Mother Sister Social History Tobacco Use Types Packs/Day Years Used Date Smoking Tobacco: Never Smokeless Tobacco: Never Tobacco Cessation:Counseling Given: Not Answered Alcohol Use Standard Drinks/Week Comments No 0 (1 standard drink = 0.6 oz pur e alcohol) AUDIT-C Answer Date Recorded Frequency of Alcohol Consumption Never 04/28/2019 Average Number of Drinks Not on file 019 Frequency of Binge Drinking Not on file 12/2018 Comments No Sex and Gender Information Value Date Recorded Sex Assigned at Not on file Legal Sex Female 7:43 PM CDT Gender Identity Not on file Sexual Orientation Not on file Last Filed Vital Signs Vital Sign Reading Time Taken Comments Blood Pressure 110/60 09/10/2024 11:37 AM MEDICAL EDUCATION COORDINATOR Pulse 51 09/10/2024 11:37 AM MEDICAL EDUCATION COORDINATOR Temperature 37.3 C (99.2 F) 07/16/2023 11:06 AM CDT Respiratory Rate 22 07/16/2023 11:06 AM CDT Oxygen Saturation 98% 09/10/2024 11:37 AM MEDICAL EDUCATION COORDINATOR Inhaled Oxygen Concentration - - Weight 73 kg (161 lb) 09/10/2024 11:37 AM MEDICAL EDUCATION COORDINATOR Height 157.5 cm (5' 2 ) 09/10/2024 11:37 AM MEDICAL EDUCATION COORDINATOR Body Mass Index 29.45 09/10/2024 11:37 AM MEDICAL EDUCATION COORDINATOR Plan of Treatment Upcoming Encounters Date Type Department Care Team (Late st Contact Info) Description 03/11/2025 1:00 PM CDT [facility] [address] [place] [id number] Kike Russell MD [address] [address] Health Maintenance Due Date Last Done Comments Colorectal Cancer Screening Colonoscopy (10 Years) 1959 Hepatitis C 1977 DTaP, Tdap and Td Vaccines ( 1 - Tdap) 1978 Mammogram Screening 1999 Zoster Vaccines (1 of 2) 2009 RSV Immunization or 60+ Years (1 - Risk 60-74 years 1-dose series) 2019 COVID-19 Vaccine (4 - 2023-2 5 season) 2024 02/13/2021, 01/29/2021, 01/08/2021 Influenza Adult (#1) 2024 Dexa Scan (General) 2024 Pneumococcal Vaccine: 65+ Years (1 of 1 - PCV) 2024 Meningococcal B Vaccine Aged Out No l onger eligible based on patient's age to complete this topic Meningococcal Vaccine Aged Out No maikel anna eligible based on patient's age to complete this topic Pneumococcal Vaccine: Pediatrics (0 to 5 Years) and At-Risk Patients (6 to 64 Years) Aged Out No longer eligible b ased on patient's age to complete this topic RSV Immunizations Under 20 Months Aged Out No longer eligible b ased on patient's age to complete this topic Goals Goal Patient Goal Type Associated Problems Recent Progress Patient-Stated? Author Health - patient able to perform ADLs independently General No Fina Olguin, RN Medical Devices Implanted Type Area Propulsion Motor And Generator Repairer Device Identifier Shelf Expiration Date Model / Serial / Lot Iol [employer] - [id number] Implanted:Qty: 1 on 05/05/2019 by Sam Lopez MD at [facility] [employer]ens [employer] 03/17/2022 [id number] / / Procedures Procedure Name Priority Date/Time Associated Diagnosis Comments LIPID PANEL Routine 09/09/2024 CMP (OUTSIDE LAB) Routine 09/09/2024 CBC (OUTSIDE LAB) Routine 09/09/2024 TSH (OUTSIDE LAB) Routine 09/09/2024 HEMOGLOBIN, GLYCOSYLATED Routine 09/09/2024 from Last 3 Months Results * TSH (OUTSIDE LAB) (09/09/2024) TSH 2.69 0.40 - 4.50 09/09/2024 us Default History Genericprovider LAB-OUTSIDE/ABST RACTED Final Result * (ABNORMAL) CMP (OUTSIDE LAB) (09/09/2024) SODIUM S/P/B 141 135 - 146 POTASSIUM S/P/B 4.1 3.5 - 5.3 CHLORIDE S/P/B 107 98 - 110 CO2 25 20 - 32 BUN 17 7 - 25 CREATININE S/P/B 0.77 0.50 - 1.05 EGFR NON-AFR. AMER. 86 >60 CALCIUM S/P/B 9.1 8.6 - 10.4 GLUCOSE 83 65 - 99 mg/dL TOTAL PROTEIN S/P/B 0.8 0.2 - 1.2 ALBUMIN S/P/B 4.4 3.6 - 5.1 AST 20 10 - 35 ALT 18 6 - 29 ALKALINE PHOSPHATASE S/P/B 70 37 - 153 BILIRUBIN TOTAL S/P/B 0.8 0.2 - 1.2 09/09/2024 Default History Genericprovider LAB-OUTSIDE/ABST RACTED Final Result * CBC (OUTSIDE LAB) (09/09/2024) WBC 5.4 3.8 - 10.8 HGB 13.3 11.7 - 15.5 HCT 40.0 35.0 - 45.0 PLT 226 140 - 400 RBC 4.31 3.80 - 5.10 09/09/2024 Default History Genericprovider LAB-OUTSIDE/ABST RACTED Final Result * HEMOGLOBIN, GLYCOSYLATED (09/09/2024) HGB A1C 5.3 4.8 - 5.7 % 09/09/2024 Default History Genericprovider LABORATORY Final Result * (ABNORMAL) LIPID PANEL (09/09/2024) CHOLESTEROL 136 0 - 200 HDL 40(A) 50 - 70 TRIGLYCERIDES 128 0 - 150 NON HDL CHOLESTEROL 96 0 - 130 CHOL/HDL RATIO 3.4 0.0 - 5.0 LDL (CALCULATED) 75 0 - 100 09/09/2024 Default History Genericprovider LABORATORY Final Result from Last 3 Months Insurance MEDICARE GENERIC - COMMERCIAL Advance Directives Documents on File Type Date Recorded Patient Seafood Preparer Expl anation Advance Directives and Living Will 08/24/2021 8:42 AM [place] CARE * Full Code (Latest Code Status on File) Date Activated Date Inactivated Comments 08/23/2021 1:48 PM 08/24/2021 6:06 PM * Full Code Date Activated Date Inactivated Comments 02/02/2021 2:00 PM 02/03/2021 3:25 PM * Full Code Date Activated Date Inactivated Comments 11/01/2019 10:45 PM 11/05/2019 2:59 PM Care Teams Wool Puller Relationship Specialty Start Date End Date Indira Sears PA-C [address] [place], [place] [address] [place] [address] PCP - General PHYSICIAN [employer] FURNACE 06/30/22
--- OUTSIDE RECORDS SUMMARY | 2024-12-02 00:47 | XMS_ITS | Encounter Summary ---
Author Organization [facility] Address [facility] [place] [address] Care Team Providers Care Building Supervisor Name Role Phone Indira Sears PA-C Primary Care Provider [phone] Encounter Details Date Type Department Care Team (Late st Contact Info) Description 08/07/2022 Abstract [facility] [address] Roddy Blankenship MA Social History Tobacco Use Types Packs/Day Years Used Date Smoking Tobacco: Never Smokeless Tobacco: Never Alcohol Use Standard Drinks/Week Comments No 0 [...] on file Sexual Orientation Not on file documented as of this encounter Functional Status * RETIRED Are you deaf or do you have serious difficulty hearing Answer Date of Assessment Author Status Yes 08/23/2021 10:00 AM CDT Acti ve * RETIRED Are you blind or do you have serious difficulty seeing, even when wearing glasses? Answer Date of Assessment Author Status No 08/23/2021 10:00 AM CDT Acti ve * Do you have serious difficulty walking or climbing stairs? Answer Date of Assessment Author Status No 08/23/2021 10:00 AM Kimberly Huang RN Active * Do you have difficulty dressing or bathing? Answer Date of Assessment Author Status No 08/23/2021 10:00 AM CALLIET Kimberly Demarco RN Active * Because of a physical, mental, or emotional condition, do you have difficulty doing errands alone such as visiting a doctor's office or shopping? Answer Date of Assessment Author Status No 08/23/2021 10:00 AM Kimberly Huang RN Active documented as of this encounter Mental Status * Because of a physical, mental, or emotional condition, do you have serious difficulty concentrating, remembering, or making decisions? Answer Entry Date Author Status No 08/23/2021 10:00 AM Kimberly Huang RN Active documented in this encounter Plan of Treatment Upcoming Encounters Date Type Department Care Team (Late st Contact Info) Description 03/11/2025 1:00 PM CDT Office Visit [facility] [address] [place] [phone] Kike Russell MD [address] [address] documented as of this encounter Goals Goal Patient Goal Type Associated Problems Recent Progress Patient-Stated? Author Health - patient able to perform ADLs independently General No Fina Olguin RN documented as of this encounter Procedures Procedure Name Priority Date/Time Associated Diagnosis Comments COMPREHENSIVE METABOLIC PANEL Routine 10/24/2023 LIPID PANEL Routine 10/24/2023 CBC, MANUAL DIFF Routine 10/24/2023 THYROID STIM HORMONE TSH Routine 10/24/2023 DIGOXIN Routine 10/24/2023 COMPREHENSIVE METABOLIC PANEL Routine 09/30/2022 LIPID PANEL Routine 09/30/2022 CBC, MANUAL DIFF Routine 09/30/2022 THYROID STIM HORMONE TSH Routine 09/30/2022 COMPREHENSIVE METABOLIC PANEL Routine 05/24/2022 LIPID PANEL Routine 05/24/2022 documented in this encounter Results * COMPREHENSIVE METABOLIC PANEL (10/24/2023) SODIUM S/P/B 139 GLUCOSE 96 mg/dL AST 27 BUN 14 CREATININE S/P/B 0.70 0.5 - 1.0 CALCIUM S/P/B 9.3 POTASSIUM S/P/B 4.3 CHLORIDE S/P/B 106 ALT 21 GFR ESTIMATE >60 us Default History Genericprovider LABORATORY Edited Result - Final * LIPID PANEL (10/24/2023) CHOLESTEROL 156 TRIGLYCERIDES 124 HDL 42 DIRECT LDL 69 Default History Genericprovider LABORATORY Edited Result - Final * CBC, MANUAL DIFF (10/24/2023) WBC 5.7 HGB 12.9 HCT 38.6 PLT 234 Default History Genericprovider LABORATORY Edited Result - Final * THYROID STIM HORMONE, TSH (10/24/2023) TSH 1.780 Default History Genericprovider LABORATORY Edited Result - Final * DIGOXIN (10/24/2023) DIGOXIN 0.5 us Default History Genericprovider LABORATORY Edited Result - Final * COMPREHENSIVE METABOLIC PANEL (09/30/2022) SODIUM S/P/B 140 GLUCOSE 87 mg/dL AST 19 BUN 16 CREATININE S/P/B 0.77 0.5 - 1.0 CALCIUM S/P/B 9.6 POTASSIUM S/P/B 4.3 CHLORIDE S/P/B 105 ALT 17 GFR ESTIMATE 87 us Default History Genericprovider LABORATORY Final Result * LIPID PANEL (09/30/2022) Pathologist [facility] CHOLESTEROL 151 TRIGLYCERIDES 115 HDL 42 LDL (CALCULATED) 88 NON HDL CHOLESTEROL 109 us Default History Genericprovider LABORATORY Final Result * CBC, MANUAL DIFF (09/30/2022) Pathologist [facility] WBC 5.8 HGB 13.2 HCT 39.5 PLT 257 us Default History Genericprovider LABORATORY Final Result * THYROID STIM HORMONE, TSH (09/30/2022) Pathologist [facility] TSH 2.13 Default History Genericprovider LABORATORY Final Result * COMPREHENSIVE METABOLIC PANEL (05/24/2022) Pathologist [facility] AST 19 ALT 17 Default History Genericprovider LABORATORY Edited Result - Final * LIPID PANEL (05/24/2022) Pathologist [facility] CHOLESTEROL 151 TRIGLYCERIDES 132 HDL 41 LDL (CALCULATED) 87 NON HDL CHOLESTEROL 110 Default History Genericprovider LABORATORY Edited Result - Final documented in this encounter Visit Diagnoses Not on filedocumented in this encounter Additional Health Concerns Infection Onset Date Last Indicated Resolved Time COVID-19 Rule Out 07/16/2023 07/16/2023 07/16/2023 6:18 AM CDT documented as of this encounter Care Teams Building Supervisor Relationship Specialty Start Date End Date Indira Sears PA-C [address] [employer] [id number] [place] [address] PCP - General PHYSICIAN STEEL RULE INSPECTOR 06/30/22 documented as of this encounter
--- OUTSIDE RECORDS SUMMARY | 2024-12-02 00:47 | XMS_ITS | Encounter Summary ---
Author Organization [facility] Address [facility] [place] [address] Care Team Providers Care Automatic Spinning Lathe Setter Name Role Phone Jose De Jesus Russ MD Primary Care Provider Terence Maldonado MD Primary Care Provider [phone] Indira Sears PA-C Primary Care Provider [phone] Encounter Details Date Type Department Care Team (Late st Contact Info) Description 11/06/2019 Hospital Follow-up Call [facility] Medical[facility]Surgical [address] [place] [address] Vanesa Batres, RN Social History Tobacco Use Types Packs/Day Years [...] hearing Answer Date of Assessment Author Status No 11/01/2019 11:05 PM RADIO COMMENTATOR Acti ve * RETIRED Are you blind or do you have serious difficulty seeing, even when wearing glasses? Answer Date of Assessment Author Status No 11/01/2019 11:05 PM RADIO COMMENTATOR Acti ve * Do you have serious difficulty walking or climbing stairs? Answer Date of Assessment Author Status No 11/01/2019 11:05 PM Destiny Salinas RN Active * Do you have difficulty dressing or bathing? Answer Date of Assessment Author Status No 11/01/2019 11:05 PM Destiny Salinas RN Active * Because of a physical, mental, or emotional condition, do you have difficulty doing errands alone such as visiting a doctor's office or shopping? Answer Date of Assessment Author Status No 11/01/2019 11:05 PM Destiny Salinas RN Active documented as of this encounter Mental Status * Because of a physical, mental, or emotional condition, do you have serious difficulty concentrating, remembering, or making decisions? Answer Entry Date Author Status No 11/01/2019 11:05 PM Destiny Salinas RN Active documented in this encounter Plan of Treatment Upcoming Encounters Date Type Department Care Team (Late st Contact Info) Description 03/11/2025 1:00 PM CDT Office Visit [facility] [address] [address] Kike Russell MD [address] [address] documented as of this encounter Visit Diagnoses Not on filedocumented in this encounter Additional Health Concerns Infection Onset Date Last Indicated Resolved Time COVID-19 Rule Out 07/16/2023 07/16/2023 07/16/2023 6:18 AM CDT documented as of this encounter Care Teams Automatic Spinning Lathe Setter Relationship Specialty Start Date End Date Jose De Jesus Russ MD [address] [place] [address] PCP - General FAMILY PRACTICE 04/30/19 02/04/21 Terence Maldonado MD [address] [place] [address] PCP - General INTERNAL MEDICINE 02/05/21 06/29/22 Indira Sears PA-C [address] [place] [address] [address] [place] [address] PCP - General PHYSICIAN SUGAR BOILER 06/30/22 documented as of this encounter
--- OUTSIDE RECORDS SUMMARY | 2024-12-02 00:47 | XMS_ITS | CONTINUITY OF CARE DOCUMENT ---
Author Name dewayne buchanan Address Unknown Organization [facility] Address [address] [facility] [address] [place] [address] Phone [phone] Care Team Providers Care Measurement Operator Name Role Phone dewayne buchanan Unavailable Unavailable INSURANCE PROVIDERS Payer name Policy type / Coverage type [place] red libertarian ID [facility] [id number]
[2024-12-02 06:29] VITALS: BP 125/70; PULSE 58; RESP 16; TEMP 37; O2SAT 99; BMI 27.5
[2024-12-02] MEDS: LACTATED RINGERS 1,000 ML 150 ML IV CONT (06:37)
--- NOTE | 2024-12-02 07:02 | WPDANESEPPF ---
Anes - Initial Pre Proc Eval Procedure: Operation Date: 12/02/24 07:30 Proposed Procedures p Colonoscopy - Stephon Smith MD Date/Time: 12/02/24 07:02 Surgeon: Stephon Smith MD Pre Op Diagnosis: personal history of colon polyps Patient Data Age: 64 Gender: F Height: 1.6 m Weight: 70.4 kg Last Vital Signs Temp 37.0 C 12/02/24 06:29 Pulse 58 L 12/02/24 06:29 Resp 16 12/02/24 06:29 BP 125/70 12/02/24 06:29 Pulse Ox 99 12/02/24 06:29 O2 Del Method Room Air 12/02/24 06:29 Allergies Allergy/AdvReac Type Severity Reaction Status Date / Time No Known Allergies Allergy Verified 12/02/24 06:23 Home Medications ?Medication ?Instructions ?Recorded ?Confirmed ?Type apixaban 5 mg tablet (Eliquis) 5 mg PO BID 09/13/21 12/02/24 History digoxin 125 mcg (0.125 mg) tablet 0.125 mcg PO DAILY 09/13/21 12/02/24 History bftzlyop-wnya-ffhf 8 mg-folic 400 1 tablet PO DAILY 09/13/21 12/02/24 History mcg-K 50 mcg-lutein 300 mcg tablet (Centrum [facility]) ascorbic acid (vitamin C) 1,000 mg 1 g PO DAILY 08/13/23 12/02/24 History tablet lutein-zeaxanthin 1 cap PO BID 08/13/23 12/02/24 History atorvastatin 20 mg tablet 20 mg PO QHS #90 tabs 09/09/24 12/02/24 Rx metoprolol succinate 25 mg 25 mg PO BID 09/09/24 12/02/24 History tablet,extended release 24 hr solifenacin 10 mg tablet 10 mg PO DAILY #90 tabs 09/09/24 12/02/24 Rx omega-3s 800 mg-dha 186.67 mg-epa 3 cap PO DAILY 11/23/24 12/02/24 History 560 mg-fish-vit D3 8.33 mcg capsule (De3 [facility] [place] Benefits) Patient hx anesthesia problems: none Family hx anesthesia problems: none Results Review: All pre-operative results and documents have been reviewed as part of the pre-operative evaluation. [facility] Past Medical History Medical History (Updated 09/09/24 @ 15:51 by Indira Sears PA-C) History of esophageal dilatation 08/18/23 Dyslipidemia Left hip pain Lumbar pain Right carpal tunnel syndrome Left carpal tunnel syndrome Atrial fibrillation SHARI (obstructive sleep apnea) History of intussusception History of rectal ulcer History of colon polyps Family history of malignant neoplasm of colon in first degree relative diagnosed when younger than 60 years of age Surgical History Surgical History History of cataract extraction History of rotator cuff surgery Family History Family History Mother Diabetes mellitus Social History Social History Smoking status: Never smoker Alcohol intake: current Substance use: never Substance use type: does not use Lack of Transportation: No Lack of Food: Never True Current Housing: I Have Housing Concerned About Future Housing: No Difficulty Paying Gas/Electric Bills: No Difficulty Paying for Meds: No Currently Unemployed: No Education: High School Diploma/GED Difficulty w/ Childcare or Family Care: No Living arrangements: with family Occupation/Education: occupation Gender identity (if verbalized by the patient): Female Spiritual care concerns: No Anes - Eval Final PreProcedure Day of Procedure 12/02/24 07:02 Patient weight: overweight Heart: regular rate and rhythm Lungs: clear to auscultation Airway: Mallampati scale class II Neurological: alert and oriented Last oral intake: >/= 8 hours ASA classification: III Emergent: no Anesthetic plan: proceed Anesthesia type and monitoring: general GIVS and standard monitoring Results Review: All pre-operative results and documents have been reviewed as part of the pre-operative evaluation. Informed Consent: The patient's anesthetic plan and its attendant risks and benefits were discussed with the patient/family/POA. Questions were solicited and answers provided to the satisfaction of the patient/family/POA.
--- NOTE | 2024-12-02 07:21 | PM.IMHP ---
H&P: HPI History of Present Illness Date/Time: 12/02/24 07:21 Chief Complaint: Serve colon polyps Narrative: The patient has a history of colonic polyps, the last colonoscopy was 5 years ago Review of Systems Review of Systems: All systems reviewed & are unremarkable except as noted in HPI and below PMFSH Past Medical History Medical History (Updated 09/09/24 @ 15:51 by Indira Sears PA-C) History of esophageal dilatation 08/18/23 Dyslipidemia Left hip pain Lumbar pain Right carpal tunnel syndrome Left carpal tunnel syndrome Atrial fibrillation SHARI (obstructive sleep apnea) History of intussusception History of rectal ulcer History of colon polyps Family history of malignant neoplasm of colon in first degree relative diagnosed when younger than 60 years of age Surgical History Surgical History History of cataract extraction History of rotator cuff surgery Family History Family History Mother Diabetes mellitus Social History Social History Smoking status: Never smoker Alcohol intake: current Substance use: never Substance use type: does not use Lack of Transportation: No Lack of Food: Never True Current Housing: I Have Housing Concerned About Future Housing: No Difficulty Paying Gas/Electric Bills: No Difficulty Paying for Meds: No Currently Unemployed: No Education: High School Diploma/GED Difficulty w/ Childcare or Family Care: No Living arrangements: with family Occupation/Education: occupation Gender identity (if verbalized by the patient): Female Spiritual care concerns: No Meds Home Medications and Allergies Home Medications ?Medication ?Instructions ?Recorded ?Confirmed ?Type apixaban 5 mg tablet (Eliquis) 5 mg PO BID 09/13/21 12/02/24 History digoxin 125 mcg (0.125 mg) tablet 0.125 mcg PO DAILY 09/13/21 12/02/24 History azjmhfvc-nqbi-bkgl 8 mg-folic 400 1 tablet PO DAILY 09/13/21 12/02/24 History mcg-K 50 mcg-lutein 300 mcg tablet (Centrum [place] [facility]) ascorbic acid (vitamin C) 1,000 mg 1 g PO DAILY 08/13/23 12/02/24 History tablet lutein-zeaxanthin 1 cap PO BID 08/13/23 12/02/24 History atorvastatin 20 mg tablet 20 mg PO QHS #90 tabs 09/09/24 12/02/24 Rx metoprolol succinate 25 mg 25 mg PO BID 09/09/24 12/02/24 History tablet,extended release 24 hr solifenacin 10 mg tablet 10 mg PO DAILY #90 tabs 09/09/24 12/02/24 Rx omega-3s 800 mg-dha 186.67 mg-epa 3 cap PO DAILY 11/23/24 12/02/24 History 560 mg-fish-vit D3 8.33 mcg capsule (De3 [facility] [place] Benefits) Allergies Allergy/AdvReac Type Severity Reaction Status Date / Time No Known Allergies Allergy Verified 12/02/24 06:23 Vital Signs Vital Signs - 24 hr 12/02/24 06:29 Temperature 98.6 F Pulse Rate 58 L Respiratory Rate 16 Blood Pressure 125/70 Pulse Oximetry 99 Oxygen Delivery Room Air Exam Const: General: cooperative and healthy appearing Resp: Effort & Inspection: normal respiratory effort and able to speak in complete sentences Auscultation: clear to auscultation bilaterally Cardio: Rate: regular rate Rhythm: regular rhythm GI: Inspection: normal to inspection GI Palp: No No hepatosplenomegaly present Auscultation: normal bowel sounds Rectal Exam: deferred Skin: General skin exam: normal color Psych: Appearance: grossly normal Mental Status: mental status grossly normal Assessment and Plan Assessment and plan (1) History of colon polyps: Code(s): Z86.010 - Personal history of colon polyps Status: Acute Assessment and Plan: The patient is deemed a good candidate for the procedure. Consent signed. Will proceed.
[2024-12-02 07:53] VITALS: BP 101/63; PULSE 51; RESP 22; O2SAT 97
[2024-12-02 08:03] VITALS: BP 107/64; PULSE 52; RESP 16; O2SAT 98
[2024-12-02 08:13] VITALS: BP 112/64; PULSE 50; RESP 18; O2SAT 98
== END 2024-12-02 08:23 | disposition home or self-care (01) ==
PROVIDERS: PCP Physician Assistant Medical; Visit Provider Internal Medicine Gastroenterology
PROC: 0DJD8ZZ Inspection of Lower Intestinal Tract, Via Natural or Artificial Opening Endoscopic (ICD-10-PCS; CPT 45378; principal; 2024-12-02 07:30)
DX: Z12.11 Encounter for screening for malignant neoplasm of colon (principal); K63.5 Polyp of colon; K64.3 Fourth degree hemorrhoids; K57.30 Diverticulosis of large intestine without perforation or abscess without bleeding; E78.5 Hyperlipidemia, unspecified; G56.03 Carpal tunnel syndrome, bilateral upper limbs; I48.91 Unspecified atrial fibrillation; G47.33 Obstructive sleep apnea (adult) (pediatric); Z79.01 Long term (current) use of anticoagulants; Z98.890 Other specified postprocedural states; Z87.19 Personal history of other diseases of the digestive system; Z80.0 Family history of malignant neoplasm of digestive organs
CPT/HCPCS: 45385; 88305; J2003; J2704; J7120

== ENCOUNTER 2025-02-21 07:39 | Outpatient (CLI) | payer MEDICARE, SELFPAY ==
--- NOTE | ~2025-02-21 | MM_ITS ---
EXAMINATION: MM screening renetta BI w dani HISTORY: Screening mammogram TECHNIQUE: Craniocaudal and mediolateral oblique 3-D tomosynthesis images were obtained and synthetic 2-D images were generated. CAD analysis was submitted and interpreted. COMPARISON: 02/20/2024, 10/05/2022, 07/30/2021 BREAST PARENCHYMAL COMPOSITION:Dense: The breasts are heterogeneously dense, which may obscure small masses. FINDINGS: No suspicious mass, calcification, or architectural distortion are identified in either sarbjit ast to suggest malignancy. There has been no suspicious interval change. IMPRESSION: No mammographic evidence of malignancy. Recommend routine screening mammography in one year. BI-RADS Category 1: Negative Reviewed, dictated and finalized at location .
--- OUTSIDE RECORDS SUMMARY | 2025-02-21 07:46 | XMS_ITS | Encounter Summary ---
Author Organization [facility] Address [facility] [place] [address] Care Team Providers Care Camera Prototyping Engineer Name Role Phone Jose De Jesus Russ MD Primary Care Provider [phone] Terence Maldonado MD Primary Care Provider [phone] Indira Sears PA-C Primary Care Provider [phone] Encounter Details Date Type Department Care Team (Late st Contact Info) Description 11/06/2019 Hospital Follow-up [facility] [address] [place] [address] Vanesa Batres, RN Social History Tobacco Use [...] Assessment Author Status No 11/01/2019 11:05 PM SUPERVISOR DOG LICENSE OFFICER Acti ve * RETIRED Are you blind or do you have serious difficulty seeing, even when wearing glasses? Answer Date of Assessment Author Status No 11/01/2019 11:05 PM SUPERVISOR DOG LICENSE OFFICER Acti ve * Do you have serious [...] Description 03/11/2025 1:00 PM CDT Office Visit [facility] [address] [address] Kike Russell MD [address] [address] documented as of this encounter Visit Diagnoses Not on filedocumented in this encounter Additional Health Concerns Infection Onset Date Last Indicated Resolved Time COVID-19 Rule Out 07/16/2023 07/16/2023 07/16/2023 6:18 AM CDT documented as of this encounter Care Teams Camera Prototyping Engineer Relationship Specialty Start Date End Date Jose De Jesus Russ MD [address] [place] [address] PCP - General FAMILY PRACTICE 04/30/19 02/04/21 Terence Maldonado MD [address] [place] [address] PCP - General INTERNAL MEDICINE 02/05/21 06/29/22 Indira Sears PA-C [address] [place] [address] [address] [place] [address] PCP - General PHYSICIAN DOCUMENT CONTROL COORDINATOR 06/30/22 documented as of this encounter
--- OUTSIDE RECORDS SUMMARY | 2025-02-21 07:46 | XMS_ITS | Clinical Summary ---
Author Organization [facility] Address [address] [place] [address] Care Team Providers Care Slab Lifting Supervisor Name Role Phone Indira Sears PA-C Primary Care Provider [phone] Allergies No known active allergies Medications Ascorbic Acid 1000 MG Tab Take 1 tablet by mouth daily with supper. Active Multiple Vitamins-Mineral s (MULTIVITAMIN ADULT OR) Take by mouth daily. Active solifenacin succinate 10 MG Tab Take 1 tablet (10 mg total) by mouth daily. 01/14/2022 Active atorvastatin (LIPITOR) 20 MG tablet Take 1 tablet (20 mg total) by mouth every evening. 06/21/2022 Active Multiple Vitamins-Mineral s (LUTEIN-ZEAXANTH IN OR) Take by mouth 2 (two) times a day. Active metoprolol tartrate (LOPRESSOR) 25 MG tablet TAKE 1 TABLET BY MOUTH TWICE DAILY 180 tablet 11/23/2024 Active ELIQUIS 5 MG tablet TAKE 1 TABLET BY MOUTH TWICE DAILY 180 tablet 01/03/2025 Active digoxin (LANOXIN) 0.125 MG tablet TAKE 1 TABLET BY MOUTH DAILY 90 tablet 01/03/2025 Active Active Problems Problem Noted Date Diagnosed Date Bradycardia 09/10/2024 Assessment & Plan (09/10/2024 12:29 PM SKEIN YARN DRIER): Pulse consistently low the past few visits. [...] medication. Assessment & Plan (11/16/2023 7:51 AM SKEIN YARN DRIER): Blood pressure elevated in the office. Encouraged home blood pressure monitoring. Continue to monitor blood pressure. She is currently only on metoprolol, which is not the best blood pressure medication. Mixed hyperlipidemia 02/26/2023 Assessment & Plan (09/10/2024 12:27 PM SKEIN YARN DRIER): Lipid panel completed 2 days ago with primary care and LDL is 75. Continue atorvastatin 20mg daily. Assessment & Plan (02/27/2024 2:41 PM CDT): Continue atorvastatin. Assessment & Plan (11/16/2023 7:50 AM SKEIN YARN DRIER): Continue atorvastatin. PAF (paroxysmal atrial fibrillation) ([facility] S/HCC) 09/14/2021 Assessment & Plan (09/10/2024 12:26 PM SKEIN YARN DRIER): She is in normal sinus rhythm on [...] Eliquis. Assessment & Plan (11/16/2023 7:50 AM SKEIN YARN DRIER): On physical exam, she is currently in [...] control Assessment & Plan (09/14/2021 3:29 PM SKEIN YARN DRIER): On physical exam, she is currently in [...] for stroke prevention. Preoperative cardiovascular examination 09/14/20 21 Assessment & Plan (09/14/2021 3:30 PM SKEIN YARN DRIER): She is at low risk for the [...] 09/14/2021 Assessment & Plan (09/14/2021 3:31 PM SKEIN YARN DRIER): She is obese with a Body mass index is 34.96 kg/m . She was educated on lifestyle modifications including diet and exercise. Abdominal pain 11/01/2019 Resolved Problems Problem Noted Date Diagnosed Date Resolved Date Atrial fibrillation with RVR ([facility]) 08/23/2021 09/14/2021 Atrial flutter with rapid ve ntricular response ([facility]) 02/03/2021 09/14/2021 Atrial fibrillation with rap id ventricular response ([facility]) 02/02/2021 09/14/2021 Immunizations Immunization Administration Dates Next Due PFIZER COVID-19 (ORIGINAL [...] Comments Blood Pressure 110/60 09/10/2024 11:37 AM SKEIN YARN DRIER Pulse 51 09/10/2024 11:37 AM SKEIN YARN DRIER Temperature 37.3 C (99.2 F) 07/16/2023 11:06 AM CDT Respiratory Rate 22 07/16/2023 11:06 AM CDT Oxygen Saturation 98% 09/10/2024 11:37 AM SKEIN YARN DRIER Inhaled Oxygen Concentration - - Weight 73 kg (161 lb) 09/10/2024 11:37 AM SKEIN YARN DRIER Height 157.5 cm (5' 2 ) 09/10/2024 11:37 AM SKEIN YARN DRIER Body Mass Index 29.45 09/10/2024 11:37 AM SKEIN YARN DRIER Plan of Treatment Upcoming Encounters Date Type Department Care Team (Late st Contact Info) Description 03/11/2025 1:00 PM CDT Office Visit [facility] [address] [place] [address] Kike Russell MD [facility] [address] [place] [address] Health Maintenance Due Date Last Done Comments Colorectal Cancer Screening Colonoscopy (10 Years) 1959 Hepatitis C 1977 DTaP, Tdap and Td Vaccines ( 1 - Tdap) 1978 Mammogram Screening 1999 Pneumococcal Vaccine: 50+ Years (1 of 1 - PCV) 2009 Zoster Vaccines (1 of 2) 2009 RSV Immunization or 60+ Years (1 - Risk 60-74 years 1-dose series) 2019 COVID-19 Vaccine (2023-2 5 season) 2024 02/13/2021, 01/29/2021, 01/08/2021 Dexa Scan (General) 2024 Meningococcal B Vaccine Aged Out No [...] Olguin, RN Medical Devices Implanted Type Area Team Otr Truck Driver Device Identifier Shelf Expiration Date Model / Serial / Lot Iol [employer] Zcboo - [id number] Implanted:Qty: 1 on 05/05/2019 by Sam Lopez MD at [facility] [employer]ens [employer] 03/17/2022 [id number] / / Insurance MEDICARE GENERIC - COMMERCIAL Advance Directives Documents on File Type Date Recorded Patient Motor Tune Up Specialist Expl anation Advance Directives and Living Will [...] 10:45 PM 11/05/2019 2:59 PM Care Teams Slab Lifting Supervisor Relationship Specialty Start Date End Date Indira Sears PA-C [address] [place], [place] [address] [place] [address] PCP - General PHYSICIAN DIRECTOR OF PHYSICAL SECURITY 06/30/22
--- OUTSIDE RECORDS SUMMARY | 2025-02-21 07:46 | XMS_ITS | CONTINUITY OF CARE DOCUMENT ---
Author Name dewayne buchanan Address Unknown Organization [facility] Address [address] [facility] [address] [place] [address] Phone [phone] Care Team Providers Care Director Correctional Agency Name Role Phone dewayne buchanan Unavailable Unavailable INSURANCE PROVIDERS Payer name Policy type / Coverage type [place] red republican ID [facility] [id number]
--- OUTSIDE RECORDS SUMMARY | 2025-02-21 07:46 | XMS_ITS | Encounter Summary ---
Author Organization [facility] Address Counts include 234 beds at the [facility] [place] [address] Care Team Providers Care Soil Specialist Name Role Phone Indira Sears PA-C Primary Care Provider [phone] Encounter Details Date Type Department Care Team (Late st Contact Info) Description 08/07/2022 Abstract [facility] [address] Roddy Blankenship MA Social History Tobacco Use [...] Description 03/11/2025 1:00 PM CDT Office Visit [facility] [address] [place] [id number] Kike Russell MD [address] [address] documented as of this encounter Goals Goal [...] Final Result * LIPID PANEL (09/30/2022) Pathologist [facility] CHOLESTEROL 151 TRIGLYCERIDES 115 HDL 42 LDL (CALCULATED) 88 NON HDL CHOLESTEROL 109 us Default History Genericprovider LABORATORY Final Result * CBC, MANUAL DIFF (09/30/2022) Pathologist [facility] WBC 5.8 HGB 13.2 HCT 39.5 PLT 257 us Default History Genericprovider LABORATORY Final Result * THYROID STIM HORMONE, TSH (09/30/2022) Pathologist [facility] TSH 2.13 Default History Genericprovider LABORATORY Final Result * COMPREHENSIVE METABOLIC PANEL (05/24/2022) Pathologist [facility] AST 19 ALT 17 Default History Genericprovider LABORATORY Edited Result - Final * LIPID PANEL (05/24/2022) Pathologist [facility] CHOLESTEROL 151 TRIGLYCERIDES 132 HDL 41 LDL (CALCULATED) 87 NON HDL CHOLESTEROL 110 Default History Genericprovider LABORATORY Edited Result - Final documented in this encounter Visit Diagnoses Not on filedocumented in this encounter Additional Health Concerns Infection Onset Date Last Indicated Resolved Time COVID-19 Rule Out 07/16/2023 07/16/2023 07/16/2023 6:18 AM CDT documented as of this encounter Care Teams Soil Specialist Relationship Specialty Start Date End Date Indira Sears PA-C [address] [place], [place] [id number] [place] [address] PCP - General PHYSICIAN EXCAVATOR BACKHOE OPERATOR 06/30/22 documented as of this encounter
== END 2025-02-21 07:40 | disposition home or self-care (01) ==
LOC: ANHIMG 07:43
PROVIDERS: PCP Physician Assistant Medical; Visit Provider Physician Assistant Medical
DX: Z12.31 Encounter for screening mammogram for malignant neoplasm of breast (principal)
CPT/HCPCS: 77063; 77067

== ENCOUNTER 2025-03-25 07:25 | Outpatient (CLI) | payer MEDICARE, SELFPAY ==
--- NOTE | ~2025-03-25 | MR_ITS ---
MRI of the lumbar spine Clinical History: Back pain Technique: Axial T2-weighted images, and sagittal T1-weighted, T2-weighted, and T2 fat-sat images wer e acquired. Findings: 4 mm anterolisthesis of L3 over L4 present. No acute fracture. No suspicious bone marrow si gnal abnormality. At L1-L2, there is no disc bulge or herniation. There is mild to moderate facet arthropathy. No centr al canal stenosis or neural foraminal narrowing. At L2-L3, there is advanced degenerative disc narrowing. There is minimal disc bulge with moderate fa cet arthropathy. No central canal stenosis or neural foraminal narrowing. At L3-L4, there is disc bulge/uncovering with severe facet arthropathy. There is minimal central michelle l stenosis. Neural foramina are preserved. At L4-L5, there is severe degenerative disc narrowing. There is mild disc bulge with advanced facet a rthropathy. No central canal stenosis or neural foraminal narrowing. At L5-S1, there is no disc bulge or herniation. No spinal canal stenosis or neural foraminal narrowin g. Paravertebral soft tissues are unremarkable. Impression: Mild to moderate degenerative spondylosis overall. 4 mm anterolisthesis of L3 over L4. Reviewed, dictated and finalized at location . Impression: Mild to moderate degenerative spondylosis overall. 4 mm anterolisthesis of L3 over L4.
== END 2025-03-25 07:26 | disposition home or self-care (01) ==
LOC: MICIMG 07:27
PROVIDERS: PCP Physician Assistant Medical; Visit Provider Physician Assistant Medical
DX: M47.896 Other spondylosis, lumbar region (principal); M54.32 Sciatica, left side
CPT/HCPCS: 72148

== ENCOUNTER 2025-04-18 07:46 | Outpatient (CLI) | payer MEDICARE, SELFPAY ==
--- NOTE | ~2025-04-18 | DEXA_ITS ---
Bone Density Report Name: ALE ABDUL Age: 64 Sex: Female Ethnicity: White Date of : 1960 Indication: postmenopausal; screening for osteoporosis; height loss; hysterectomy; secondary osteoporosis; Referring Provider: JANIE ELIZONDO Study: Bone densitometry was performed. Exam Date: April 18, 2025 Accession number: [id number] Bone Density: Region BMD T-score Z-score Classification AP Spine(L1-L4) 0.950 -0.9 0.9 Normal Femoral Neck (Left) 0.842 -0.1 1.5 Normal Total Hip (Left) 1.039 0.8 2.1 Normal Femoral Neck (Right) 0.805 -0.4 1.1 Normal Total Hip (Right) 1.019 0.6 1.9 Normal Total Hip Mean 1.029 0.7 2.0 Normal World Health Organization criteria for BMD impression classify patients as: Normal (T-score at or above -1.0), Osteopenia (T-score between -1.0 and -2.5), or Osteoporosis (T-score at or below -2.5). 10-year Fracture Risk: FRAX not reported because: All T-scores for Spine Total, Hip Total, Femoral Neck at or above -1.0 Previous Exams: Region Exam Age BMD T-score BMD Change BMD Change Date g/cm2 vs Baseline vs Previous AP Spine (L1-L4) 04/18/2025 64 0.950 -0.9 -0.060 (-5.9%) -0.060 (-5.9%) 09/30/2022 62 1.010 -0.3 Total Hip(Left) 04/18/2025 64 1.039 0.8 0.060 (6.1%)* 0.060 (6.1%)* 09/30/2022 62 0.979 0.3 Total Hip(Right) 04/18/2025 64 1.019 0.6 0.025 (2.5%) 0.025 (2.5%) 09/30/2022 62 0.994 0.4 *Denotes significance at 95% confidence level, LSC for AP Spine = 0.022 g/cm2, LSC for Total Hip = 0.027 g/cm2 Clinical Information Provided by Patient: Has secondary osteoporosis Has used the following medications: Vitamin D, Calcium Has the following medical conditions: Hysterectomy Patient maximum height was 63 Menopause Age: 25 No regular weight bearing exercise Drinks caffeinated beverages Onset of menses at age 14 Number of children 3 Impression: The patient has normal bone mass. The BMD for the AP Spine (L1-L4) decreased, changing by -5.9% since the last DXA exam. Discussion: BONE DENSITY IS ABOVE THE MINIMUM DESIRABLE LEVEL AT ALL SKELETAL SITES TESTED. This patient?s bone mineral density is above the minimum desirable level (T-score -1.0 or better) at all sites measured. The patient should follow a healthful lifestyle (good nutrition with adequate calcium and vitamin D, and appropriate weight-bearing exercise). Follow-Up: Consider repeating this study in 3 to 4 years to reassess this patient's status, or sooner if there is some new clinical indication. Reported by: LUCIA on 04/18/2025 8:27:00 AM. Reviewed, dictated and finalized at location A.
== END 2025-04-18 07:47 | disposition home or self-care (01) ==
PROVIDERS: PCP Physician Assistant Medical; Visit Provider Physician Assistant Medical
DX: E28.39 Other primary ovarian failure (principal)
CPT/HCPCS: 77080

== ENCOUNTER 2025-10-18 15:04 | Outpatient (CLI) | payer MEDICARE, SELFPAY ==
--- NOTE | ~2025-10-18 | CT_ITS ---
EXAMINATION: CT sinus wo con DATE: 10/18/2025 15:20 INDICATION: Chronic sinusitis TECHNIQUE: Computed tomography (CT) of the paranasal sinuses was performed without intravenous contrast. The dose-length product was 390.41 mGy-cm. Automated exposure control and iterative reconstruction technique were employed. COMPARISON: None FINDINGS: The paranasal sinuses and mastoids are pneumatized. No depressed skull fractures. Rightward nasal septal deviation. Ostiomeatal units are patent. No significant mucosal thickening. No air-fluid levels. No mucoperiosteal reaction. IMPRESSION: 1. No significant sinus disease. Reviewed, dictated and finalized at location O. D AND FAMILY SERVICES SPECIALIST
== END 2025-10-18 15:05 | disposition home or self-care (01) ==
LOC: GOSHIMG 15:05
PROVIDERS: PCP Otolaryngology; Visit Provider Otolaryngology
DX: J32.9 Chronic sinusitis, unspecified (principal)
CPT/HCPCS: 70486